=== PATIENT | female | born 2000 | race Caucasian/White ===

== ENCOUNTER 2023-02-24 15:19 | Outpatient (CLI) | payer OTHER, SELFPAY ==
--- NOTE | ~2023-02-24 | US_ITS ---
EXAMINATION: US pelvic complete w TV DATE: 02/24/2023 16:12 INDICATION: Assess IUD position, irregular menstruation TECHNIQUE: Multiple transabdominal and endovaginal sonographic images of the pelvis were obtained. COMPARISON: None. FINDINGS: The uterus measures 8.1 x 3.5 x 4.6 cm. The endometrial complex measures 7 mm. The IUD appe ars to be in expected position. The left ovary is not visualized however no left adnexal abnormality is seen. The right ovary measures 1.5 x 2.8 x 1.9 cm. There is normal vascular flow in the right ovar y. There is no free fluid in the pelvis. IMPRESSION: 1. IUD appears to be in expected position. Reviewed, dictated and finalized at location L.
== END 2023-02-24 15:20 | disposition home or self-care (01) ==
PROVIDERS: PCP Nurse Practitioner Family; Visit Provider Nurse Practitioner
DX: Z30.431 Encounter for routine checking of intrauterine contraceptive device (principal)
CPT/HCPCS: 76830; 76856